=== PATIENT | male | born 1980 | race Two or more races ===

== ENCOUNTER 2023-09-08 12:52 | Emergency (ER) | payer OTHER, SELFPAY ==
[2023-09-08] VITALS (28 sets, daily range): BP systolic 100–128; BP diastolic 62–79; PULSE 60–101; RESP 17–24; TEMP 36.6; O2SAT 95–100; BMI 22.7
--- NOTE | 2023-09-08 12:56 | ECG_ITS ---
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
[2023-09-08] MEDS: 0.9 % SODIUM CHLORIDE 1,000 ML 999 ML IV (13:25)
--- NOTE | 2023-09-08 13:35 | ED_ITS ---
HPI - Dizziness General Chief Complaint: Dizziness Stated Complaint: GENERAL WEAKNESS Time Seen by Provider: 09/08/23 12:56 Source: patient Mode of arrival: ambulance Limitations: no limitations History of Present Illness HPI Narrative: Patient sent from [facility] facility to be evaluated after complaining of dizziness, generalized fatigue and weakness, nausea without vomiting. He said that the dizziness is worse with standing. No diarrhea. No cough or cold symptoms. No chest pain or shortness of breath. He was admitted to [facility] 09/06/23 with last use of fentanyl 09/05/23. he struggles with opiate addiction for greater than 10 years. He was on suboxone previously and then was on Methadone until Apr 2023. He said that he has never been at in-patient rehab before. Related Data Previous Rx's Medication Instructions Recorded levofloxacin 750 mg tablet 750 mg PO DAILY 4 days #4 tabs 09/08/23 Allergies Allergy/AdvReac Type Severity Reaction Status Date / Time No Known Drug Allergies Allergy Verified 09/08/23 12:54 [facility] Medical History (Updated 09/08/23 @ 14:26 by Black Julian) History of drug abuse ?F19.11 - Other psychoactive substance abuse, in remission (ICD-10) History of hypertension ?Z86.79 - Personal history of other diseases of the circulatory system (ICD- 10) History of asthma ?Z87.09 - Personal history of other diseases of the respiratory system (ICD- 10) History of depression ?Z86.59 - Personal history of other mental and behavioral disorders (ICD-10) History of diabetes mellitus, type II ?Z86.39 - Personal history of other endocrine, nutritional and metabolic disease (ICD-10) History of hepatitis C ?Z86.19 - Personal history of other infectious and parasitic diseases (ICD- 10) Fibromyalgia ?M79.7 - Fibromyalgia (ICD-10) Social History Smoking status: Heavy tobacco smoker Exam Narrative Exam Narrative: Nurses notes and vital signs reviewed and patient is not hypoxic. afebrile General: Well-appearing and in no apparent distress. Skin: Warm, dry, no pallor noted. No rash. Head: Normocephalic, atraumatic. Neck: Supple, non-tender. No cervical lymphadenopathy. No meningismus. Eye: Pupils are equal, round and EOMI. No scleral icterus. Ears, Nose, Mouth, and Throat: Oral mucosa is slightly dry Cardiovascular: Regular Rate and Rhythm without murmur, gallop or rub. Respiratory: No accessory muscle use or respiratory distress. Lungs are clear to auscultation, no wheezing, rales or rhonchi Back: No midline thoracic or lumbar vertebral tenderness. No CVA tenderness Musculoskeletal: normal ROM, no calf or popliteal tenderness, no lower extremity edema/swelling GI: Abdomen is soft, non-distended. Normal bowel sounds. No masses appreciated. No tenderness to palpation. No rebound, guarding, or rigidity noted. Neurological: A&O x4. No cranial nerve dysfunction observed. No truncal ataxia. Moves all extremities. Sensation intact. Psychiatric: Cooperative and interactive. Normal mood and affect. Constitutional Vital Signs, click to edit/add: Last Vital Signs Temp 97.8 F 09/08/23 12:54 Pulse 77 09/08/23 12:54 Resp 20 09/08/23 12:54 BP 104/62 09/08/23 12:54 Pulse Ox 97 09/08/23 12:54 O2 Del Method Room Air 09/08/23 13:00 Course Vital Signs Vital signs: Vital Signs Temperature 97.8 F 09/08/23 12:54 Pulse Rate 77 09/08/23 12:54 Respiratory Rate 20 09/08/23 12:54 Blood Pressure 104/62 09/08/23 12:54 Pulse Oximetry 97 09/08/23 12:54 Temperature 97.8 F 09/08/23 12:54 Pulse Rate 77 09/08/23 12:54 Respiratory Rate 20 09/08/23 12:54 Blood Pressure 104/62 09/08/23 12:54 Pulse Oximetry 97 09/08/23 12:54 Oxygen Delivery Method Room Air 09/08/23 13:00 MDM - Dizziness MDM Narrative Medical decision making narrative: Patient was placed on rn cardiac rehab and EKG obtained. Blood drawn and sent for evaluation. He was ordered to receive normal saline IV fluid and I also gave him IV Zofran. His potassium and magnesium were low so those were repleted in the ED. He was also found to have an acute UTI and was given IV Levaquin in the ED - also prescribed additional Levaquin to be taken once daily for 4 more days. He was informed of results and we discussed treatment plan. he was discharged back to [facility] where he will continue his rehab therapy. Medical Records Attestation: I reviewed the patient's medical records. Medical records narrative: I reviewed a copy of the patient's chart and intake information from [facility] Lab Data Attestation: I reviewed the patient's lab results. Labs: Lab Results 09/08/23 09/08/23 Range/Units 13:17 13:58 WBC 8.3 (4.0-11.0) 10^3/uL RBC 4.72 (4.70-6.10) 10^6/uL Hgb 14.5 (14.0-18.0) g/dL Hct 42.3 (42.0-54.0) % MCV 89.6 (80.0-94.0) fL MCH 30.7 (25.9-34.0) pg MCHC 34.3 (29.9-35.2) g/dL RDW 13.8 (11.0-15.0) % Plt Count 495 H (150-450) 10^3/uL MPV 9.4 L (9.5-13.5) fL Neut % (Auto) 57.2 (43.0-75.0) % Lymph % (Auto) 34.2 (20.5-60.0) % [place] % (Auto) 7.2 (1.7-12.0) % Eos % (Auto) 0.5 L (0.9-7.0) % Baso % (Auto) 0.5 (0.2-2.0) % Neut # (Auto) 4.8 (1.4-6.5) 10^3/uL Lymph # (Auto) 2.8 (1.2-3.8) 10^3/uL [place] # (Auto) 0.6 (0.3-0.8) 10^3/uL Eos # (Auto) 0.0 (0.0-0.7) 10^3/uL Baso # (Auto) 0.0 (0.0-0.1) 10^3/uL Abs Immat Gran (auto) 0.03 (0.00-0.03) 10^3/uL Imm/Tot Granulo (auto) 0.4 (0.0-0.5) % Sodium 135 L (136-145) mmol/L Potassium 2.8 L* (3.5-5.1) mmol/L Chloride 98 (98-107) mmol/L Carbon Dioxide 25.7 (21.0-32.0) mmol/L Anion Gap 14.1 BUN 9.0 (7.0-18.0) mg/dL Creatinine 0.95 (0.70-1.30) mg/dL Est GFR ( Amer) >60 (>=60) Est GFR (Non-Af Amer) >60 (>=60) BUN/Creatinine Ratio 9.5 Glucose 201 H (74-106) mg/dL Calcium 9.4 (8.5-10.1) mg/dL Magnesium 1.7 L (1.8-2.4) mg/dL Total Bilirubin 0.6 (0.2-1.0) mg/dL AST 21 (15-37) U/L ALT 23 (16-63) U/L Alkaline Phosphatase 92 (46-116) U/L Troponin I High Sens 4.7 (4.0-76.1) pg/mL Total Protein 7.7 (6.4-8.2) g/dL Albumin 3.0 L (3.4-5.0) g/dL Globulin 4.7 g/dL Albumin/Globulin Ratio 0.6 Urine Color Lt. yellow (YELLOW) Urine Clarity Cloudy A (CLEAR) Urine pH 6.0 (5.0-9.0) Ur Specific [place] 1.020 (1.005-1.025) Urine Protein 30 A (NEG/TRACE) mg/dL Urine Glucose (UA) 500 A (NEGATIVE) mg/dL Urine Ketones Trace A (NEGATIVE) mg/dL Urine Occult Blood Moderate A (NEGATIVE) Urine Nitrite Negative (NEGATIVE) Urine Bilirubin Negative (NEGATIVE) Urine Urobilinogen 0.2 (0.2-1.0) EU/dL Ur Leukocyte Esterase Moderate A (NEGATIVE) Urine RBC 5-10 A (0-2) #/HPF Urine WBC >100 A (NONE SEEN) #/HPF Ur Squamous Epith Cells Few A (NONE/RARE) #/LPF Urine Crystals None seen (None Seen) #/HPF Urine Bacteria Trace A (NONE SEEN) #/HPF Urine Casts None seen (NONE SEEN) #/LPF Urine Mucus Trace A (NONE SEEN) Urine Yeast Seen A (NONE SEEN) Ur Culture Indicated? Yes ECG Data Attestation: I personally reviewed and interpreted this ECG as follows: Interpretation: EKG interpretation: Emergency Department physician interpretation. Normal sinus rhythm at 81bpm. Normal axis, normal intervals and no ST segment elevation or depression. Normal EKG. Discharge Plan Discharge Chief Complaint: Dizziness Clinical Impression: Dizziness, Hypokalemia, Hypomagnesemia, Acute UTI Patient Disposition: Home, Self-Care Time of Disposition Decision: 14:08 Prescriptions / Home Meds: New levofloxacin 750 mg tablet 750 mg PO DAILY 4 Days Qty: 4 0RF Instructions: Urinary Tract Infection in Men (ED), Hypokalemia (ED), Hypomagnesemia (ED), Dizziness (ED) Stand Alone Forms: Portal Instructions Referrals: LIDIA CASE [Primary Care Provider] - 1 week
[2023-09-08 13:36] LABS: Basophils Percent Auto 0.5 % (0.2-2.0); Eosinophils Percent Auto 0.5 % (0.9-7.0); Hematocrit 42.3 % (42.0-54.0); Hemoglobin 14.5 g/dL (14.0-18.0); Immature Granulocytes Abs Auto 0.03 10^3/uL (0.00-0.03); Immature Granulocytes Pct Auto 0.4 % (0.0-0.5); Lymphocytes Absolute Auto 2.8 10^3/uL (1.2-3.8); Lymphocytes Percent Auto 34.2 % (20.5-60.0); Mean Corpuscular HGB Conc 34.3 g/dL (29.9-35.2); Mean Corpuscular Hemoglobin 30.7 pg (25.9-34.0); Mean Corpuscular Volume 89.6 fL (80.0-94.0); Mean Platelet Volume 9.4 fL (9.5-13.5); Monocytes Absolute Auto 0.6 10^3/uL (0.3-0.8); Monocytes Percent Auto 7.2 % (1.7-12.0); Neutrophils Absolute Auto 4.8 10^3/uL (1.4-6.5); Neutrophils Percent Auto 57.2 % (43.0-75.0); Platelet Count 495 10^3/uL (150-450); Red Blood Count 4.72 10^6/uL (4.70-6.10); Red Cell Distribution Width 13.8 % (11.0-15.0); White Blood Count 8.3 10^3/uL (4.0-11.0)
[2023-09-08] MEDS: ONDANSETRON PF 4 MG/2 ML VIAL IV (13:43)
[2023-09-08 13:48] LABS: Alanine Aminotransferase 23 U/L (16-63); Albumin Globulin Ratio 0.6; Alkaline Phosphatase 92 U/L (46-116); Anion Gap 14.1; Aspartate Amino Transferase 21 U/L (15-37); BUN Creatinine Ratio 9.5; Bilirubin Total 0.6 mg/dL (0.2-1.0); Calcium 9.4 mg/dL (8.5-10.1); Carbon Dioxide 25.7 mmol/L (21.0-32.0); Chloride 98 mmol/L (98-107); Estimated GFR (African America >60 (>=60); Estimated GFR (Non-African Ame >60 (>=60); Globulin 4.7 g/dL; Glucose 201 mg/dL (74-106); Magnesium 1.7 mg/dL (1.8-2.4); Sodium 135 mmol/L (136-145); Total Protein 7.7 g/dL (6.4-8.2); Troponin I High Sensitivity 4.7 pg/mL (4.0-76.1)
[2023-09-08 13:54] LABS: Potassium 2.8 mmol/L (3.5-5.1)
[2023-09-08 14:10] LABS: Bilirubin Urine NEGATIVE (NEGATIVE); Blood Urine MODERATE (NEGATIVE); Clarity Urine CLOUDY (CLEAR); Color Urine LT. YELLOW (YELLOW); Glucose Urine UA 500 mg/dL (NEGATIVE); Ketones Urine TRACE mg/dL (NEGATIVE); Leukocyte Esterase Urine MODERATE (NEGATIVE); Nitrite Urine NEGATIVE (NEGATIVE); Protein Urine 30 mg/dL (NEG/TRACE); Urobilinogen Urine 0.2 EU/dL (0.2-1.0)
[2023-09-08] MEDS: POTASSIUM CHLORIDE 10 MEQ ER TABLET 40 MEQ PO (14:13)
[2023-09-08] MEDS: MAGNESIUM SULFATE/D5W 1 GM/100 ML PIGGYBACK IV (14:13)
[2023-09-08 14:14] LABS: Urine Microscopic Indicated YES
[2023-09-08 14:18] LABS: Bacteria Urine TRACE #/HPF (NONE SEEN); WBC Urine >100 #/HPF (NONE SEEN)
[2023-09-08 14:19] LABS: Cast Seen? NONE SEEN #/LPF (NONE SEEN); Crystals Seen? None Seen #/HPF (None Seen); Mucus Urine TRACE (NONE SEEN); Squamous Epithelial Cell Urine FEW #/LPF (NONE/RARE); Urine Culture Indicated YES
[2023-09-08 14:25] LABS: Amphetamine Screen Urine NEGATIVE (NEGATIVE); Barbiturates Screen Urine NEGATIVE (NEGATIVE); Benzodiazepines Screen Urine NEGATIVE (NEGATIVE); Buprenorphine Screen Urine POSITIVE (NEGATIVE); Cannabinoid Screen Urine NEGATIVE (NEGATIVE); Cocaine Screen Urine NEGATIVE (NEGATIVE); Methadone Screen Urine NEGATIVE (NEGATIVE); Methamphetamines Screen Urine NEGATIVE (NEGATIVE); Opiate Screen Urine NEGATIVE (NEGATIVE); Oxycodone Screen Urine NEGATIVE (NEGATIVE); Phencyclidine Screen Urine NEGATIVE (NEGATIVE); Tricyclic Antidepressant Urine NEGATIVE (NEGATIVE)
[2023-09-08] MEDS: LEVOFLOXACIN IN DEXTROSE 5 % 750 MG/150 ML IV.SOLN 100 MG IV (14:48)
--- NOTE | 2023-09-11 08:17 | PC.NURSE ---
09/11/[address] nicholas reviewed urine c+s from 09/08/23 nno at this time. S Collin LLANOS
== END 2023-09-08 16:31 | disposition home or self-care (01) ==
PROVIDERS: Emergency Provider Emergency Medicine; PCP Family Medicine
DX: N39.0 Urinary tract infection, site not specified (principal); E87.6 Hypokalemia; R42 Dizziness and giddiness; E83.42 Hypomagnesemia; F17.200 Nicotine dependence, unspecified, uncomplicated; M79.7 Fibromyalgia; Z86.19 Personal history of other infectious and parasitic diseases; F11.20 Opioid dependence, uncomplicated; Z79.4 Long term (current) use of insulin; E11.9 Type 2 diabetes mellitus without complications; I10 Essential (primary) hypertension
CPT/HCPCS: 36415; 80053; 80307; 81001; 83735; 84484; 85025; 87086; 87106; 93005; 96361; 96365; 96366; 96368; 96375; 99285; J2405; J3475

== ENCOUNTER 2023-11-18 21:15 | Emergency (ER) | payer OTHER, SELFPAY ==
[2023-11-18 21:16] VITALS: BP 159/75; PULSE 60; TEMP 37.3; O2SAT 100; BMI 22.0
--- NOTE | 2023-11-18 21:30 | ED.NAVMDI1 ---
HPI - Nausea/Vomiting/Diarrhea General Chief complaint: Nausea/Vomiting/Diarrhea Stated complaint: opioid withdrawl Time Seen by Provider: 11/18/23 21:17 Source: patient Mode of arrival: ambulance Limitations: no limitations History of Present Illness HPI Narrative: This 43-year-old male with a history of fentanyl abuse was transferred from [facility] for evaluation of 3 days of nausea and vomiting. The patient has a history of type 2 diabetes and states that his sugar is high. He last used fentanyl 3 days ago prior to being admitted to the Center. He states he has been having ongoing nausea and vomiting. He has epigastric abdominal pain. He has been treated with IV fluids and Phenergan but has ongoing symptoms. He does have a history of DKA in the past and also has kidney problems.. On arrival he is not vomiting and requests coffee to drink. He states he feels anxious and shaky. His body hurts. He has not had any diarrhea. He denies any chest pain or shortness of breath. Related Data Home Medications ?Medication ?Instructions ?Recorded ?Confirmed No Known Home Medications 11/18/23 11/18/23 Allergies Allergy/AdvReac Type Severity Reaction Status Date / Time No Known Drug Allergies Allergy Verified 11/18/23 21:21 Review of Systems ROS Status of ROS 10 or more systems reviewed and unremarkable except as noted in history and below [facility] Medical History (Updated 11/18/23 @ 22:54 by Valerie Silva MD) History of drug abuse ?F19.11 - Other psychoactive substance abuse, in remission (ICD-10) History of hypertension ?Z86.79 - Personal history of other diseases of the circulatory system (ICD-10) History of asthma ?Z87.09 - Personal history of other diseases of the respiratory system (ICD-10) History of depression ?Z86.59 - Personal history of other mental and behavioral disorders (ICD-10) History of diabetes mellitus, type II ?Z86.39 - Personal history of other endocrine, nutritional and metabolic disease (ICD-10) History of hepatitis C ?Z86.19 - Personal history of other infectious and parasitic diseases (ICD-10) Fibromyalgia ?M79.7 - Fibromyalgia (ICD-10) Social History Smoking status: Heavy tobacco smoker Exam Narrative Exam Narrative: Nurses note and vital signs reviewed and patient is not hypoxic.Blood pressure is mildly elevated at 159/75. General: Thin, Alert, nontoxic male, no respiratory distress, no active vomiting Skin: Warm, dry, no pallor noted. There is no rash noted. Head: Normocephalic, atraumatic Eye: Normal conjunctiva, no drainage, EOMI. PERRL. No scleral icterus Ears, Nose, Mouth, and Throat: oral mucosa is moist. Nares patent. Mouth without vesicles. Cardiovascular: Regular Rate and Rhythm S1S2, pulses are brisk and equal bilaterally Respiratory: Patient is in no distress, no accessory muscle use, lungs are clear to auscultation, no wheezing, rales or rhonchi Back: non-tender, no CVA tenderness bilaterally to percussion. GI: mild epigastric abdominal tenderness, abdomen is otherwise soft, flat, nondistended with mildly hyperactive bowel sounds Musculoskeletal: The patient has no evidence of calf tenderness, no pitting edema, symmetrical pulses noted bilaterally Neurological: A&O x4, normal speech Psychiatric: Cooperative, anxious Constitutional Vital Signs, click to edit/add: Last Vital Signs Temp 99.1 F 11/18/23 21:16 Pulse 60 11/18/23 21:16 Resp 18 11/18/23 21:16 BP 159/75 H 11/18/23 21:16 Pulse Ox 100 11/18/23 21:42 O2 Del Method Room Air 11/18/23 21:42 Course Vital Signs Vital signs: Vital Signs Temperature 99.1 F 11/18/23 21:16 Pulse Rate 60 11/18/23 21:16 Respiratory Rate 18 11/18/23 21:16 Blood Pressure 159/75 H 11/18/23 21:16 Pulse Oximetry 100 11/18/23 21:16 Oxygen Delivery Method Room Air 11/18/23 21:16 Temperature 99.1 F 11/18/23 21:16 Pulse Rate 60 11/18/23 21:16 Respiratory Rate 18 11/18/23 21:16 Blood Pressure 159/75 H 11/18/23 21:16 Pulse Oximetry 100 11/18/23 21:42 Oxygen Delivery Method Room Air 11/18/23 21:42 MDM - Nausea/Vomiting/Diarrhea MDM Narrative Medical decision making narrative: This 44-year-old male with a history of diabetes and substance abuse who is at [facility] is transferred for evaluation of nausea vomiting and opiate withdrawal. He has been receiving IV fluids and Phenergan. Upon arrival he states he is shaky and nauseated but requests coffee. He states he is concerned because he is a diabetic and thinks that his sugar is high. He has had DKA in the past. His vital signs were stable with the exception of a mildly elevated blood pressure. He does. not clinically appear to have DKA. An IV was placed and he was medicated with IV fluids, 0.1 mg clonidine, IV Pepcid and Zofran. Routine labs are reviewed. His white blood cell count is mildly elevated at 11.4. Hemoglobin is stable. Electrolytes are reviewed. His glucose is elevated at 344, BUN and creatinine are normal, CO2 is normal and anion gap is 10. Acetone is negative. Venous pH is stable and not indicative of DKA. Reevaluation the patient appears to be feeling better. He was offered Gatorade which he is now drinking. The patient states this is his 2nd attempt at rehab for fentanyl addiction. He will be returned to [facility] and is in agreement with this plan Lab Data Labs: Lab Results 11/18/23 Range/Units 21:24 WBC 11.4 H (4.0-11.0) 10^3/uL RBC 5.01 (4.70-6.10) 10^6/uL Hgb 15.0 (14.0-18.0) g/dL Hct 43.7 (42.0-54.0) % MCV 87.2 (80.0-94.0) fL MCH 29.9 (25.9-34.0) pg MCHC 34.3 (29.9-35.2) g/dL RDW 11.9 (11.0-15.0) % Plt Count 276 (150-450) 10^3/uL MPV 9.8 (9.5-13.5) fL Neut % (Auto) 81.5 H (43.0-75.0) % Lymph % (Auto) 14.0 L (20.5-60.0) % [place] % (Auto) 4.0 (1.7-12.0) % Eos % (Auto) 0.0 L (0.9-7.0) % Baso % (Auto) 0.3 (0.2-2.0) % Neut # (Auto) 9.3 H (1.4-6.5) 10^3/uL Lymph # (Auto) 1.6 (1.2-3.8) 10^3/uL [place] # (Auto) 0.5 (0.3-0.8) 10^3/uL Eos # (Auto) 0.0 (0.0-0.7) 10^3/uL Baso # (Auto) 0.0 (0.0-0.1) 10^3/uL Abs Immat Gran (auto) 0.02 (0.00-0.03) 10^3/uL Imm/Tot Granulo (auto) 0.2 (0.0-0.5) % VBG pH 7.465 H (7.330-7.430) VBG pCO2 38.1 L (40.0-52.0) mmHg Sodium 142 (136-145) mmol/L Potassium 3.4 L (3.5-5.1) mmol/L Chloride 103 (98-107) mmol/L Carbon Dioxide 26.4 (21.0-32.0) mmol/L Anion Gap 16.0 BUN 10.0 (7.0-18.0) mg/dL Creatinine 0.95 (0.70-1.30) mg/dL Est GFR ( Amer) >60 (>=60) Est GFR (Non-Af Amer) >60 (>=60) BUN/Creatinine Ratio 10.5 Glucose 344 H (74-106) mg/dL Calcium 9.4 (8.5-10.1) mg/dL Total Bilirubin 1.4 H (0.2-1.0) mg/dL AST 19 (15-37) U/L ALT 25 (16-63) U/L Alkaline Phosphatase 85 (46-116) U/L Total Protein 7.0 (6.4-8.2) g/dL Albumin 3.5 (3.4-5.0) g/dL Globulin 3.5 g/dL Albumin/Globulin Ratio 1.0 Lipase 14.0 L (16.0-77.0) U/L Acetone, Qual Negative (NEGATIVE) Discharge Plan Discharge Stand Alone Forms: Portal Instructions Chief Complaint: Nausea/Vomiting/Diarrhea Clinical Impression: Opiate withdrawal, Hyperglycemia due to diabetes mellitus Patient Disposition: Home, Self-Care Time of Disposition Decision: 22:54 Condition: Good Prescriptions / Home Meds: No Action No Known Home Medications Print Language: [place] Instructions: Opioid Withdrawal (ED), Diabetic Hyperglycemia (ED), Narcotic Withdrawal (ED) Referrals: LIDIA CASE [Primary Care Provider] - 1 week
[2023-11-18 21:38] LABS: PCO2 VBG 38.1 mmHg (40.0-52.0); pH VBG 7.465 (7.330-7.430)
[2023-11-18 21:39] LABS: Basophils Percent Auto 0.3 % (0.2-2.0); Hematocrit 43.7 % (42.0-54.0); Immature Granulocytes Abs Auto 0.02 10^3/uL (0.00-0.03); Immature Granulocytes Pct Auto 0.2 % (0.0-0.5); Lymphocytes Absolute Auto 1.6 10^3/uL (1.2-3.8); Mean Corpuscular HGB Conc 34.3 g/dL (29.9-35.2); Mean Corpuscular Hemoglobin 29.9 pg (25.9-34.0); Mean Corpuscular Volume 87.2 fL (80.0-94.0); Mean Platelet Volume 9.8 fL (9.5-13.5); Monocytes Absolute Auto 0.5 10^3/uL (0.3-0.8); Neutrophils Absolute Auto 9.3 10^3/uL (1.4-6.5); Neutrophils Percent Auto 81.5 % (43.0-75.0); Platelet Count 276 10^3/uL (150-450); Red Blood Count 5.01 10^6/uL (4.70-6.10); Red Cell Distribution Width 11.9 % (11.0-15.0); White Blood Count 11.4 10^3/uL (4.0-11.0)
--- NOTE | 2023-11-18 21:40 | PC.NURSE ---
patient sent from [facility] rehab facility for abdominal pain and vomiting. He is detoxing from Fentanyl, last use was 3 days ago. He has been to rehab before, last time 3 months ago. He states this feels similar to last time he detoxed from Fentanyl. He feels anxious and is having pain in his legs. He asked for coffee even though he is having vomiting, after obtaining permission from Dr. Silva, he is given coffee.
[2023-11-18 21:42] VITALS: O2SAT 100
[2023-11-18 21:44] LABS: Acetone NEGATIVE (NEGATIVE)
[2023-11-18 21:53] LABS: Alanine Aminotransferase 25 U/L (16-63); Albumin Level 3.5 g/dL (3.4-5.0); Alkaline Phosphatase 85 U/L (46-116); Aspartate Amino Transferase 19 U/L (15-37); BUN Creatinine Ratio 10.5; Bilirubin Total 1.4 mg/dL (0.2-1.0); Calcium 9.4 mg/dL (8.5-10.1); Carbon Dioxide 26.4 mmol/L (21.0-32.0); Chloride 103 mmol/L (98-107); Estimated GFR (African America >60 (>=60); Estimated GFR (Non-African Ame >60 (>=60); Globulin 3.5 g/dL; Glucose 344 mg/dL (74-106); Potassium 3.4 mmol/L (3.5-5.1); Sodium 142 mmol/L (136-145)
[2023-11-18] MEDS: 0.9 % SODIUM CHLORIDE 1,000 ML 1000 ML IV (21:54)
[2023-11-18] MEDS: FAMOTIDINE/PF 20 MG/2 ML VIAL IV (21:55)
[2023-11-18] MEDS: ONDANSETRON PF 4 MG/2 ML VIAL IV (21:55)
[2023-11-18] MEDS: CLONIDINE HCL 0.1 MG TABLET 0.100000000000000006 MG PO (21:55)
== END 2023-11-18 23:31 | disposition home or self-care (01) ==
PROVIDERS: Emergency Provider Emergency Medicine; PCP Family Medicine
DX: E11.65 Type 2 diabetes mellitus with hyperglycemia (principal); F11.23 Opioid dependence with withdrawal; F17.210 Nicotine dependence, cigarettes, uncomplicated
CPT/HCPCS: 36415; 80053; 81001; 82009; 82800; 83690; 85025; 96361; 96374; 96375; 99284